=== PATIENT | male | born 1950 | race Caucasian/White ===

== ENCOUNTER → 2023-12-08 | Outpatient (CLI) | payer MEDICARE ==
--- NOTE | 2023-12-08 09:42 | MR ---
EXAMINATION TYPE: MR Prostate wo/w con DATE OF EXAM: 12/08/2023 8:32 AM COMPARISON: None. CLINICAL INDICATION:Male, 73 years old with history of R97.20 elevated PSA; Elevated PSA TECHNIQUE: Multi-planar, multi-sequence imaging of the pelvis is performed prior to and following the uncomplicated administration of bolus intravenous gadolinium. CONTRAST: 12 Gadavist Interpretive Criteria: PI-RADS v2.1 SERUM PSA: 4.61 on May 2023. 4.5 on June 2023. SURGICAL PATHOLOGY: No data available. FINDINGS: Prostatic dimensions: 6.4 x 5.9 x 3.7 cm. Ellipsoid Volume:73.15 (PSA density=0.06 ng/mL/mL) CENTRAL GLAND (Central and Transition Zones/CZ+TZ): Multiple bilateral, heterogenous appearing hypertrophic stromal nodules, without suspicious lesion. M edian lobe hypertrophy with protrusion into the base of the bladder. (PI-RADS 2) PERIPHERAL ZONE (PZ): Bilateral linear, indistinct wedgelike areas of low ADC, and low T2 signal, No evidence of masslike a bnormality, or localized perfusional hypervascularity, to further suggest a focus of clinically signi ficant prostate cancer. (PI-RADS 2) SEMINAL VESICLES (SV): Symmetric and unremarkable. PERIPROSTATIC TISSUES: Unremarkable. LYMPH NODES: No enlarged pelvic lymph node. REMAINING PELVIS: Trabeculated bladder wall likely secondary to chronic bladder outlet obstruction. No abnormal free or organized intrapelvic fluid collection. No pathologic bowel dilation or mural thickening. No hernia visualized OSSEOUS STRUCTURES: No suspicious osseous abnormality. IMPRESSION: 1. No specific features for high-risk prostate cancer. Maximum PI-RADS score: 2. 2. Moderate BPH, estimated gland volume 73.15 mL. 3. No suspicious osseous lesion. No lymphadenopathy. No evidence of prostate adenocarcinoma involving the periprostatic tissues.
== END | disposition home or self-care (01) ==
LOC: RADMRIMAIN 07:04
PROVIDERS: ATTEND Urology
DX: N40.0 Benign prostatic hyperplasia without lower urinary tract symptoms (principal); R97.20 Elevated prostate specific antigen [PSA]
CPT/HCPCS: 72197; A9585

== ENCOUNTER → 2024-02-03 | Outpatient (CLI) | payer MEDICARE ==
[2024-02-03 11:39] LABS: Basophils # (A) 0.05 X 10*3/uL (0.00-0.10); Basophils % (A) 0.8 %; Eosinophils # (A) 0.35 X 10*3/uL (0.04-0.35); Eosinophils % (A) 5.4 %; HCT 46.3 % (39.6-50.0); HGB 15.7 g/dL (13.0-17.0); Lymphocytes # (A) 1.41 X 10*3/uL (0.90-5.00); Lymphocytes % (A) 21.9 %; MCHC 33.9 g/dL (32.0-37.0); MCV 88.5 FL (80.0-97.0); Mean Platelet Volume 9.1 FL (9.5-12.2); Monocytes # (A) 0.55 X 10*3/uL (0.20-1.00); Monocytes % (A) 8.5 %; NRBC Per 100 WBC 0 X 10*3/uL (0.00-0.01); Neutrophils # (A) 4.08 X 10*3/uL (1.80-7.70); Neutrophils % (A) 63.2 %; Platelet Count 178 X 10*3/uL (140-440); RBC 5.23 X 10*6/uL (4.40-5.60); RDW 12.6 % (11.5-14.5); WBC 6.45 X 10*3/uL (4.50-10.00)
[2024-02-03 12:18] LABS: ALT 19 U/L (10-49); AST 19 U/L (14-35); Albumin 4.9 g/dL (3.8-4.9); Albumin/Globulin Ratio 2.13 Ratio (1.60-3.17); Alkaline Phosphatase 69 U/L (41-126); BUN/Creat Ratio 17.58 Ratio (12.00-20.00); Blood Urea Nitrogen 21.1 mg/dL (9.0-27.0); Calcium 9.8 mg/dL (8.7-10.3); Carbon Dioxide 24.2 mmol/L (21.6-31.8); Chloride 104 mmol/L (96-109); Chol/HDL Ratio 2.22 Ratio; Globulin 2.3 g/dL (1.6-3.3); Glucose 149 mg/dL (70-110); LDL Cholesterol,Calculated 51.5 mg/dL (0.0-131.0); Potassium 4.8 mmol/L (3.5-5.5); Sodium 141 mmol/L (135-145); Total Bilirubin 0.3 mg/dL (0.3-1.2); Total Protein 7.2 g/dL (6.2-8.2); VLDL Calculation 17.18 mg/dL (5.00-40.00)
== END | disposition home or self-care (01) ==
LOC: LABWHC1 07:35
PROVIDERS: ATTEND Internal Medicine Clinical Cardiac Electrophysiology
DX: E78.5 Hyperlipidemia, unspecified (principal)
CPT/HCPCS: 36415; 80053; 80061; 82306; 83036; 83735; 84443; 85025

== ENCOUNTER → 2024-03-11 | Outpatient (CLI) | payer MEDICARE | END | disposition home or self-care (01) | LOC: LABWHC1 10:57 | PROVIDERS: ATTEND Urology | DX: R97.20 Elevated prostate specific antigen [PSA] (principal) | CPT/HCPCS: 36415; 84153 ==

== ENCOUNTER 2024-06-21 13:54 | Day surgery (SDC) | payer MEDICARE ==
[2024-06-21] MEDS: SODIUM CHLORIDE 0.9% 1,000 ML IV SCH (14:07)
[2024-06-21] MEDS: IV FLUID CONTINUATION 1,000 ML IV ONE (14:07)
[2024-06-21 14:25] LABS: Glucose,Whole Blood 183 mg/dL (70-110)
[2024-06-21 14:28] VITALS: RESP 16; TEMP 98.4
[2024-06-21 14:51] LABS: ALT 20 U/L (4-49); AST 23 U/L (17-59); African American GFR (CKD) 66 (>60 ml/min/1.73 sqM); Albumin 4.7 g/dL (3.5-5.0); Alkaline Phosphatase 61 U/L (38-126); Anion Gap 19 mmol/L; Blood Urea Nitrogen 20 mg/dL (9-20); Calcium 9.5 mg/dL (8.4-10.2); Carbon Dioxide 27 mmol/L (22-30); Chloride 93 mmol/L (98-107); Glucose 193 mg/dL (74-99); Non-African American GFR(CKD) 57 (>60 ml/min/1.73 sqM); Potassium 4.1 mmol/L (3.5-5.1); Sodium 139 mmol/L (137-145); Total Bilirubin 0.7 mg/dL (0.2-1.3); Total Protein 7.1 g/dL (6.3-8.2)
[2024-06-21] MEDS: LIDOCAINE 1% INJ 10MG/ML (20 ML MDV) SQ ONE (15:10)
--- NOTE | 2024-06-21 15:42 | P.EPPROC ---
- EP Procedure Note Electrophysiology Procedure Note: Loop monitor implant Primary physicians: Tool Adjuster: Dr. Guzman Indication: Paroxysmal atrial fibrillation management Patient was brought to the EP lab in a fasting state. Written informed consent was obtained prior to the procedure. The left pectoral area was prepped and draped per protocol. Intravenous antibiotic was administered preoperatively. A subcutaneous Loop monitor was implanted successfully and the wound was closed per protocol. The device was programmed to detect significant bhavani- arrhythmic and tachy-arrhythmic events, per protocol. Device and programming details: PAF management protocol
[2024-06-21 15:52] VITALS: BP 195/75; PULSE 68
[2024-06-21 20:12] LABS: Chol/HDL Ratio 2.33 Ratio; LDL Cholesterol,Calculated 48.8 mg/dL (0.0-131.0)
== END 2024-06-21 15:48 | disposition home or self-care (01) ==
LOC: CATHEP 13:54
PROVIDERS: ATTEND Internal Medicine Clinical Cardiac Electrophysiology
DX: I48.0 Paroxysmal atrial fibrillation (principal); I47.10 Supraventricular tachycardia, unspecified; I11.9 Hypertensive heart disease without heart failure; E11.69 Type 2 diabetes mellitus with other specified complication; E78.5 Hyperlipidemia, unspecified; F17.210 Nicotine dependence, cigarettes, uncomplicated; Z79.01 Long term (current) use of anticoagulants; Z79.84 Long term (current) use of oral hypoglycemic drugs; Z79.899 Other long term (current) drug therapy
CPT/HCPCS: 33285; 80053; 80061; 84443

== ENCOUNTER → 2024-12-11 | Outpatient (CLI) | payer MEDICARE ==
[2024-12-12 06:39] LABS: HCT 43.5 % (39.6-50.0); HGB 14.3 g/dL (13.0-17.0); MCH 29.5 pg (27.0-32.0); MCHC 32.9 g/dL (32.0-37.0); MCV 89.9 FL (80.0-97.0); Mean Platelet Volume 9.8 FL (9.5-12.2); NRBC Per 100 WBC 0 X 10*3/uL (0.00-0.01); Platelet Count 197 X 10*3/uL (140-440); RBC 4.84 X 10*6/uL (4.40-5.60); RDW 12.7 % (11.5-14.5)
[2024-12-12 08:25] LABS: Blood Urea Nitrogen 14.7 mg/dL (9.0-27.0); Chloride 102 mmol/L (96-109); Potassium 4.6 mmol/L (3.5-5.5); Sodium 139 mmol/L (135-145)
== END | disposition home or self-care (01) ==
LOC: LABWHC1 09:52
PROVIDERS: ATTEND Internal Medicine Clinical Cardiac Electrophysiology
DX: Z01.812 Encounter for preprocedural laboratory examination (principal); I48.0 Paroxysmal atrial fibrillation
CPT/HCPCS: 36415; 80051; 82565; 84520; 85027

== ENCOUNTER 2024-12-28 13:49 | Day surgery (SDC) | payer MEDICARE ==
[2024-12-24 15:57] VITALS: BMI 34.5
[~2024-12-28 13:49] MED LIST: HYDROmorphone 0.5 MG/0.5 ML SYRINGE IVP PRN; MIDAZOLAM 2 MG/2 ML VIAL IV PRN
[2024-12-28 14:17] LABS: Glucose,Whole Blood 115 mg/dL (70-110)
[2024-12-28] MEDS: IV FLUID CONTINUATION 1,000 ML IV ONE (14:38)
[2024-12-28] MEDS: SODIUM CHLORIDE 0.9% 1,000 ML IV SCH (14:46)
[2024-12-28] MEDS: HEPARIN SOD,PORK IN 0.45% NACL 25,000 UNIT in 0.45% NACL 1 250ML.BAG IV ONE ×2 (15:00→15:35)
[2024-12-28] MEDS ORDERED: PHENYLEPHRINE-0.9% NACL SYG 1,000 MCG/10 ML SYRINGE ONE (15:05)
[2024-12-28] MEDS ORDERED: WATER FOR INJECTION, STERILE 10 ML VIAL IV ONE (15:05)
[2024-12-28] MEDS ORDERED: LIDOCAINE 1% INJ 10MG/ML (20 ML MDV) ONE (15:05)
[2024-12-28] MEDS ORDERED: ISOPROTERENOL 250 MCG/1.25 ML SYR IV ONE (15:05)
[2024-12-28] MEDS ORDERED: SUCCINYLCHOLINE CHLORIDE 200 MG/10 ML VIAL IV ONE (15:05)
[2024-12-28] MEDS ORDERED: PROPOFOL 10 MG/ML 20 ML VIAL IV ONE (15:05)
[2024-12-28] MEDS ORDERED: ePHEDrine 50 MG/ML 1 ML VIAL ONE (15:05)
[2024-12-28] MEDS ORDERED: fentaNYL (PF) 50 MCG/ML 2 ML AMP ONE (15:05)
[2024-12-28] MEDS ORDERED: HEPARIN SODIUM,PORCINE 5,000 UNIT/ML 1 ML VIAL ONE (15:05)
[2024-12-28] MEDS ORDERED: HEPARIN SODIUM,PORCINE 10,000 UNIT/ML 1 ML VIAL ONE (15:05)
[2024-12-28] MEDS ORDERED: MIDAZOLAM 2 MG/2 ML VIAL ONE (15:05)
--- NOTE | 2024-12-28 15:31 | P.HPCAR ---
History of Present Illness This is Dr. Guzman dictating an H/P on this patient The patient was interviewed and examined IMPRESSION / ASSESSMENT: Paroxysmal atrial fibrillation, recurrent, failing flecainide, symptomatic Hypertension Type 2 diabetes Past history of tobacco use PLAN: Proceed with A-fib ablation for management of refractory A-fib Heparin dose calculated Continue anticoagulation uninterrupted HPI Patient continues to have palpitations. They wake him up in the middle of the night Denies any chest pain syncope No undue shortness of breath No cough expectoration fever chills ROS: No fever chills or rigors, no cough, phlegm or expectoration, no nausea, vomiting or diarrhea, no hematuria, dysuria, no musculoskeletal complaints, no strokes or seizures, no skin lesions. EXAMINATION: Blood pressure 164/68 mmHg pulse rate in the 80s afebrile Breath sounds are reduced bilaterally but there are no rhonchi no crackles Heart sounds S1-S2 normal no murmurs Extremities warm no edema Soft abdomen No JVD REVIEW OF LABS, ECG & MEDICAL DATA TSH normal 1.2 Valsartan rosuvastatin Xarelto Ozempic metformin Metoprolol and flecainide, which were held for 2 days prior to ablation Physical Exam Vitals: Vital Signs Temp Pulse Resp BP BP Pulse Ox 12/28/24 14:37 97.9 F 83 16 164/68 190/76 98 Intake and Output 12/28/24 12/28/24 12/28/24 06:59 14:59 22:59 Intake Total 20 0 Balance 20 0 Intake: IV 20 0 Other: Weight 112.9 kg Past Medical History Past Medical History: Atrial Fibrillation, Diabetes Mellitus, Hyperlipidemia, Hypertension Additional Past Medical History / Comment(s): see dr Guzman's H & P, pt reorts hx of sepsis with"lung infection" led to ARDS, intubation, History of Any Multi-Drug Resistant Organisms: None Reported Past Surgical History: No Surgical Hx Reported Additional Past Surgical History / Comment(s): LOOP RECORDER, COLONOSCOPY, Past Anesthesia/Blood Transfusion Reactions: No Reported Reaction Smoking Status: Former smoker - Past Family History Father Family Medical History: No Reported History Physical Examination Vital Signs Temp Pulse Resp BP BP Pulse Ox 12/28/24 14:37 97.9 F 83 16 164/68 190/76 98 Intake and Output 12/28/24 12/28/24 12/28/24 06:59 14:59 22:59 Intake Total 20 0 Balance 20 0 Intake: IV 20 0 Other: Weight 112.9 kg Results Current Medications Generic Name Dose Route Start Last Admin Trade Name Hemal PRN Reason Stop Dose Admin Hydromorphone HCl 0.5 mg 12/28/24 07:00 Hydromorphone 0.5 Mg/0.5 Ml Syringe IVP 12/28/24 23:00 Q5M PRN Phase 1 or 2 - Pain Control Sodium Chloride 1,000 mls @ 20 mls/hr 12/28/24 05:52 12/28/24 14:46 Saline 0.9% IV 01/27/25 05:51 20 mls/hr .Q24H PAULINE Administration Lactated Ringer's 1,000 mls @ 20 mls/hr 12/28/24 05:52 Lactated Ringers IV 01/27/25 05:51 .Q24H PAULINE Midazolam HCl 2 mg 12/28/24 07:00 Midazolam 2 Mg/2 Ml Vial IV 12/28/24 23:00 ONCE PRN Pre-Op Anxiety Intake and Output 12/28/24 12/28/24 12/28/24 06:59 14:59 22:59 Intake Total 20 0 Balance 20 0 Intake: IV 20 0 Other: Weight 112.9 kg Patient Weight 12/29/24 06:59 Weight 112.9 kg
[2024-12-28] MEDS: LIDOCAINE 1% INJ 10MG/ML (20 ML MDV) SQ ONE (15:39)
[2024-12-28] MEDS: HEPARIN SODIUM,PORCINE (1 ML) 2,500 UNIT in SODIUM CHLORIDE 0.9% 250 ML IRRIGATION ONE (15:40)
[2024-12-28] MEDS: HEPARIN SODIUM,PORCINE 10,000 UNIT in SODIUM CHLORIDE 0.9% 1,000 ML IRRIGATION ONE (15:41)
[2024-12-28] MEDS: IOPAMIDOL-250 100ML BTL IVP ONE (17:15)
--- NOTE | 2024-12-28 17:46 | P.EPPROC ---
- EP Procedure Note Electrophysiology Procedure Note: PROCEDURE A. fib ablation DIAGNOSIS Paroxysmal atrial fibrillation, symptomatic, refractory to therapy with flecainide RESULT No left atrial appendage mass seen on intracardiac echo Successful A. fib ablation/pulmonary vein isolation of all veins using cryo- ablation Complete entrance block in all 4 veins confirmed Left atrial septal ablation No evidence for phrenic nerve injury Esophageal deflection YES PROCEDURE DETAILS Written informed consent prior to procedure. Patient brought to the EP lab. General anesthesia given. Heparin administered. A city maintained above 300 seconds Both groins prepped and draped per protocol and venous sheaths placed. Esophagus intubated, circa catheter for temperature monitoring an endoscope for possible esophageal deflection. Phrenic nerve monitoring performed. Esophageal temperature monitoring performed. Esophageal deflection performed if circa catheter overlapping with the balloon or circa temperature less than 27.5C Intracardiac echocardiography performed. Pericardium evaluated. Left atrial appendage evaluated. Left atrium evaluated along with pulmonary veins Transseptal catheterization performed under fluoroscopic guidance and intracardiac echo guidance Cryoablation sheath exchanged, balloon catheter along with achieve catheter placed in the left atrium. Pulmonary veins isolated in the following sequence: Left superior pulmonary vein followed by left inferior pulmonary vein, followed by right inferior pulmonary vein and lastly right superior pulmonary vein. Phrenic nerve stimulation along with capture thresholds within the SVC and right superior pulmonary vein to identify the phrenic nerve proximity to the cryo- balloon. Pulmonary veins isolated and confirmed with entrance and exit block. Phrenic nerve integrity confirmed at the end of the procedure Ablation of the left atrial septum performed with cannulation of the superior branch of the right inferior and the inferior branch of the right superior vein to achieve ablation of the posterior septum of the left atrium. Ablation of electrograms confirmed Diagnostic catheters for the high right atrium, His bundle, coronary sinus placed. LA and RA pressures recorded LA pressure: Diagnostic EP study with coronary sinus pacing and recording Baseline measurements: Sinus cycle length 821 ms, ID interval 163 ms, QRS 93 and QT interval 371 ms Sinus node recovery times were 1192, 1226 and 1034 ms AV node Wenckebach block 310 ms Subtle evidence of slow pathway conduction but without induction of any SVT High-dose Isopril infused Burst stimulation performed from the high right atrium from 400 ms down to 300 ms. No inducible atrial fibrillation Venous sheaths were removed and hemostasis assured with a closure device. Patient extubated and transferred to recovery PROCEDURES PERFORMED Diagnostic EP study CS pacing and recording Left and right transseptal catheterization Catheter the mapping of the tachycardia Intracardiac echocardiography Pulmonary vein isolation with transseptal and comprehensive EPS, [id number] Drug infusion, +[id number] Linear ablation, left atrium, +[id number]
[2024-12-28 18:19] LABS: Glucose,Whole Blood 78 mg/dL (70-110)
[2024-12-28] MEDS: RIVAROXABAN 20 MG TAB PO SCH (19:06)
[2024-12-28] MEDS: ACETAMINOPHEN IV (For NPO) 1,000 MG in EMPTY BAG 1 BAG IVPB ONE (20:56)
[2024-12-28] MEDS: FLECAINIDE 50 MG TAB PO SCH (20:59)
[2024-12-28] MEDS: ATORVASTATIN 20 MG TAB PO SCH (20:59)
[2024-12-28] MEDS: VALSARTAN 160 MG TAB PO SCH (21:00)
[2024-12-28] MEDS ORDERED: FLECAINIDE 50 MG TAB PO SCH (21:00)
[2024-12-28] MEDS: LACTATED RINGERS 1,000 ML IV SCH (21:00)
[2024-12-29 02:59] VITALS: TEMP 97.9
[2024-12-29] MEDS: ACETAMINOPHEN TAB 325 MG TAB PO PRN (05:18)
[2024-12-29 07:39] VITALS: BP 96/51; PULSE 88; RESP 17
--- NOTE | 2024-12-29 09:16 | P.DS ---
Providers Date of admission: 12/28/24 Attending physician: Tito Guzman Primary care physician: [facility] Course: The patient is a 74-year-old male who follows in the office with Dr. Guzman. Yesterday he underwent pulmonary vein isolation for symptomatic A-fib which was refractory to antiarrhythmic therapy. Successful PVI with no atrial fibrillation induced at the end of procedure. Patient interviewed and examined sitting up comfortably in the recliner chair. He states he did have a sore throat overnight, which is improved this morning. He also had some mild discomfort in his right groin which resolved with stitch removal. Patient has been able to get up and ambulate around his room. No chest pain or pressure. No difficulty breathing. GENERAL: Well-appearing, well-nourished and in no acute distress. NECK: Supple without JVD or thyromegaly. LUNGS: Breath sounds clear to auscultation bilaterally. Respiration equal and unlabored. No wheezes, rales or rhonchi. HEART: Regular rate and rhythm without murmurs, rubs or gallops. S1 and S2 heard. EXTREMITIES: Normal range of motion, no edema. No clubbing or cyanosis. Peripheral pulses intact and strong. Bilateral groin sites are clean dry and intact TELEMETRY: Sinus rhythm overnight LABS: TSH 1.2 IMPRESSION: Paroxysmal atrial fibrillation Refractory to antiarrhythmic therapy Status post pulmonary vein isolation Hypertension Type 2 diabetes PLAN: Continue current medication regimen Continue anticoagulation Follow-up in office in 1 week I am dictating on behalf of Dr Tito Guzman's history/physical and assessment/plan. Plan - Discharge Summary Discharge Rx Participant: No New Discharge Prescriptions: Continue Rivaroxaban [Xarelto] 20 mg PO HS Metoprolol Succinate (ER) [Toprol XL] 25 mg PO DAILY Coq 10 (Unk) 1 tab PO DAILY metFORMIN HCL [Glucophage] 500 mg PO BID Valsartan 160 mg PO BID Rosuvastatin Calcium 10 mg PO HS Flecainide Acetate 75 mg PO BID Vit D3(Unk) 1 tab PO DAILY Semaglutide [Ozempic] 1 mg SQ STEVENSON Ascorbic Acid [Vitamin C] 1,000 mg PO DAILY Discharge Medication List Coq 10 (Unk) 1 tab PO DAILY 06/18/24 [History] Flecainide Acetate 75 mg PO BID 06/18/24 [History] Metoprolol Succinate (ER) [Toprol XL] 25 mg PO DAILY 06/18/24 [History] Rivaroxaban [Xarelto] 20 mg PO HS 06/18/24 [History] Rosuvastatin Calcium 10 mg PO HS 06/18/24 [History] Valsartan 160 mg PO BID 06/18/24 [History] Vit D3(Unk) 1 tab PO DAILY 06/18/24 [History] Ascorbic Acid [Vitamin C] 1,000 mg PO DAILY 12/24/24 [History] Semaglutide [Ozempic] 1 mg SQ STEVENSON 12/24/24 [History] metFORMIN HCL [Glucophage] 500 mg PO BID 12/24/24 [History] Follow up Appointment(s)/Referral(s): Tito Guzman MD [STAFF PHYSICIAN] - 01/04/25 11:15 am Activity/Diet/Wound Care/Special Instructions: Post EP study - Ablation instructions 1. Keep access sites dry for 2 days. 2. No heavy lifting or straining for 2 days. 3. Avoid bending the hips repeatedly for 2 days. 4. You may go up and down stairs slowly 5. If you have had an ablation for atrial fibrillation or atrial flutter and are on a blood thinner, do not stop the blood thinner even temporarily for 3 months post ablation Call if the following is noted 1. Bleeding, increasing swelling or pain at the access sites. 2. Increasing chest discomfort, especially upon taking a deep breath. 3. Increasing shortness of breath, at rest or with exertion. 4. Undue cough / phlegm 5. Difficulty or pain while swallowing. 6. Pain or change in color in the extremities. 7. Fever, chills, rigors. 8. Increasing headache or neurologic symptoms. 9. Dizziness, fainting, palpitations For patients who have undergone an A-fib ablation /atrial flutter ablation Strict instruction; do NOT stop anticoagulation (Eliquis/Xarelto/Pradaxa) for the next 2 months temporarily, for any elective, nonurgent surgery. This increases the risk of stroke, post A-fib ablation Reduce flecainide to 50 mg twice daily Discharge Disposition: HOME SELF-CARE
[2024-12-29] MEDS: METOPROLOL SUCCINATE (ER) 25 MG TAB.ER.24H PO SCH (09:37)
[2024-12-30] MEDS ORDERED: metFORMIN 500 MG TAB PO SCH (17:30)
[2025-01-02] MEDS ORDERED: NON FORMULARY DRUG (Semaglutide [Ozempic] 1 MG/0.75 ML Each) SQ SCH (09:00)
== END 2024-12-29 12:26 | disposition home or self-care (01) ==
LOC: CATHEP 13:49 → 6NMEDSUR 18:03 → CATHEP 12-29 12:26
PROVIDERS: ATTEND Internal Medicine Clinical Cardiac Electrophysiology
DX: I48.0 Paroxysmal atrial fibrillation (principal); E11.9 Type 2 diabetes mellitus without complications; E66.9 Obesity, unspecified; E78.5 Hyperlipidemia, unspecified; I10 Essential (primary) hypertension; Z79.01 Long term (current) use of anticoagulants; Z79.84 Long term (current) use of oral hypoglycemic drugs; Z79.899 Other long term (current) drug therapy; Z87.891 Personal history of nicotine dependence; Z68.33 Body mass index [BMI] 33.0-33.9, adult
CPT/HCPCS: 93623; 93656; 93657; 86900; 86901; 84443; 86850; C1894; C1769; C1760 ×3; C1730 ×2; C1759; C1733; C1766; J2250; J0330; J1644 ×3; J2003; J3010; J0131; J2704; Q9966; J2371